=== PATIENT | female | born 1980 | race Caucasian/White ===

== ENCOUNTER 2025-02-01 10:11 | Emergency (ER) | payer OTHER, SELFPAY ==
[~2025-02-01] VITALS: Ht 160 cm; Wt 97.5 kg
[2025-02-01 13:27] LABS: BASO # 0.1 10^3/uL (0.0-0.2); BASO % 0.6 % (0.0-1.0); EOS # 0.1 10^3/uL (0.0-0.5); EOS % 1.2 % (0.0-3.0); LYMPH # 2.0 10^3/uL (1.5-5.0); LYMPH % 24.1 % (24.0-44.0); MONO # 0.5 10^3/uL (0.0-0.8); MONO % 5.9 % (2.0-8.0); NEUTROPHILS # 5.7 10^3/uL (1.5-8.5); NEUTROPHILS % 67.8 % (36.0-66.0); PLATELET COUNT, AUTOMATED 331 10^3/uL (150-450)
[2025-02-01] MEDS ORDERED: ISOVUE-370 76% 100 ML VIAL As Ordered ONE (13:37)
[2025-02-01] MEDS: ONDANSETRON 4MG/2ML VIAL IV ONE (13:42)
[2025-02-01 13:52] LABS: ALT/SGPT 15 U/L (7.0-40); AST/SGOT 14 U/L (<34); C REACTIVE PROTEIN QUANTITATIV < 0.50 MG/DL (<1.0)
[2025-02-01 14:59] VITALS: BP 128/76; TEMP 97.6
[2025-02-01 15:00] VITALS: O2SAT 99
== END 2025-02-01 15:07 | disposition home or self-care (01) ==
LOC: M ED 10:11
DX: K42.9 Umbilical hernia without obstruction or gangrene (principal); N20.0 Calculus of kidney; K57.30 Diverticulosis of large intestine without perforation or abscess without bleeding; F17.200 Nicotine dependence, unspecified, uncomplicated; F17.290 Nicotine dependence, other tobacco product, uncomplicated; Z88.0 Allergy status to penicillin; Z88.5 Allergy status to narcotic agent; Z88.2 Allergy status to sulfonamides; Z91.018 Allergy to other foods; Z91.89 Other specified personal risk factors, not elsewhere classified
CPT/HCPCS: 74177; 80047; 80076; 83690; 85025; 86140; 96374; 99284; J2405; Q9967